=== PATIENT | male | born 2005 | race Caucasian/White ===

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

== ENCOUNTER 2025-05-15 07:14 | Day surgery (SDC) | payer BC ==
[~2025-05-15] VITALS: Ht 177.8 cm; Wt 97.5 kg
[~2025-05-15 07:14] MED LIST: HYDR50TA70 PO; KETOROLAC 30 MG/ML 1 ML VIAL As Ordered ONE; LEXA1TAB PO; LIDOCAINE 2% 100 MG/5 ML SDV (FOR ANES.) As Ordered ONE; ONDANSETRON 4MG/2ML VIAL As Ordered ONE; ROCURONIUM BROMIDE 50MG/5ML VIAL As Ordered ONE; SUGAMMADEX SODIUM 200 MG/2 ML VIAL As Ordered ONE; dexAMETHasone 4 MG/ML 1 ML VIAL As Ordered ONE
[2025-05-15] MEDS ORDERED: MIDAZOLAM INJ 2 MG/2 ML VIAL As Ordered ONE (07:16)
[2025-05-15] MEDS ORDERED: LR 1,000 ML IV SCH (07:45)
[2025-05-15] MEDS: COCAINE 4% 4 ML NASAL SOLUTION BTL As Ordered ONE (08:55)
[2025-05-15] MEDS: OXYMETAZOLINE 0.05% NASAL SPRAY As Ordered ONE (08:56)
[2025-05-15] MEDS ORDERED: ACETAMINOPHEN 1000MG/100ML IV BAG As Ordered ONE (09:04)
[2025-05-15] MEDS: LIDOCAINE W/EPINEPHrine 1% 20 ML VIAL As Ordered ONE (09:41)
[2025-05-15] MEDS ORDERED: ONDANSETRON 4MG/2ML VIAL IV PRN (09:45)
[2025-05-15] MEDS ORDERED: MEPERIDINE 25 MG/ML 1 ML VIAL IV PRN (09:45)
[2025-05-15] MEDS: LABETALOL 100 MG/20 ML VIAL IV PRN (10:18)
[2025-05-15] MEDS ORDERED: LABETALOL 100 MG/20 ML VIAL As Ordered ONE (10:18)
[2025-05-15] MEDS: HYDROMORPHONE HCL 0.5 MG/0.5 ML SYRINGE IV PRN (10:18)
[2025-05-15] MEDS: OXYMETAZOLINE 0.05% NASAL SPRAY PRN (11:14)
[2025-05-15 11:37] VITALS: BP 147/95; TEMP 98.4; O2SAT 95
== END 2025-05-15 12:14 | disposition home or self-care (01) ==
LOC: M SDC 07:14
PROVIDERS: ATTEND Otolaryngology
DX: J34.2 Deviated nasal septum (principal); J34.3 Hypertrophy of nasal turbinates; J30.9 Allergic rhinitis, unspecified; R43.0 Anosmia; F41.9 Anxiety disorder, unspecified; F32.A Depression, unspecified; Z79.899 Other long term (current) drug therapy
CPT/HCPCS: 30140; 30520; C9143; J0131; J1100; J1171; J1885; J1920; J2250; J2405; J3010